=== PATIENT | male | born 1995 | race Caucasian/White ===

== ENCOUNTER 2020-11-23 13:34 | Emergency (ER) | payer MEDICAID ==
[~2020-11-23] VITALS: Ht 167.6 cm; Wt 72.7 kg
[2020-11-23] MEDS ORDERED: RABIES VACCINE (PCEC)/PF 2.5 UNITS/ML SYRINGE IM ONE (14:00)
[2020-11-23] MEDS ORDERED: AMOX TR/POT CLAV 875 MG/125 MG TABLET PO ONE (14:45)
[2020-11-23] MEDS ORDERED: PERTUSS(ACELL),DIPH,TET VAC/PF 0.5 ML SYRINGE IM ONE (14:45)
[2020-11-23 15:00] VITALS: BP 130/72
== END 2020-11-23 15:00 | disposition home or self-care (01) ==
LOC: EMS 13:44
DX: S61.451A Open bite of right hand, initial encounter (principal); W54.0XXA Bitten by dog, initial encounter; Y93.89 Activity, other specified; Y92.89 Other specified places as the place of occurrence of the external cause; Y99.8 Other external cause status
CPT/HCPCS: 90471; 90472; 90675; 90715; 99284

== ENCOUNTER 2020-11-26 09:19 | Emergency (ER) | payer MEDICAID ==
[~2020-11-26] VITALS: Ht 160 cm; Wt 68.2 kg
[2020-11-26] MEDS ORDERED: RABIES VACCINE (PCEC)/PF 2.5 UNITS/ML SYRINGE IM ONE (09:45)
[2020-11-26 10:20] VITALS: BP 128/77
== END 2020-11-26 10:30 | disposition home or self-care (01) ==
LOC: EMS 09:19
DX: S61.451D Open bite of right hand, subsequent encounter (principal); X58.XXXD Exposure to other specified factors, subsequent encounter
CPT/HCPCS: 90471; 90675; 96372; 99281; 99283

== ENCOUNTER 2020-11-30 14:18 | Emergency (ER) | payer MEDICAID ==
[~2020-11-30] VITALS: Ht 157.5 cm; Wt 72.7 kg
[2020-11-30] MEDS ORDERED: RABIES VACCINE (PCEC)/PF 2.5 UNITS/ML SYRINGE IM ONE (15:30)
[2020-11-30 16:00] VITALS: BP 118/69
== END 2020-11-30 16:01 | disposition home or self-care (01) ==
LOC: EMS 14:20
DX: Z23 Encounter for immunization (principal)
CPT/HCPCS: 90471; 90675; 99281

== ENCOUNTER 2020-12-07 11:57 | Emergency (ER) | payer MEDICAID ==
[~2020-12-07] VITALS: Ht 157.5 cm; Wt 72.7 kg
[2020-12-07 12:11] VITALS: BP 135/60
[2020-12-07] MEDS ORDERED: RABIES VACCINE (PCEC)/PF 2.5 UNITS/ML SYRINGE IM. ONE (12:30)
== END 2020-12-07 13:05 | disposition home or self-care (01) ==
LOC: EMS 11:57
DX: Z02.89 Encounter for other administrative examinations (principal)
CPT/HCPCS: 90471; 90675; 99281

== ENCOUNTER 2021-06-21 09:50 | Emergency (ER) | payer MEDICAID ==
[~2021-06-21] VITALS: Ht 154.9 cm; Wt 72.7 kg
[2021-06-21 11:03] VITALS: BP 118/70
== END 2021-06-21 11:41 | disposition home or self-care (01) ==
LOC: EMS 09:53
DX: S61.552A Open bite of left wrist, initial encounter (principal); W54.0XXA Bitten by dog, initial encounter; Y93.89 Activity, other specified; Y92.89 Other specified places as the place of occurrence of the external cause; Y99.8 Other external cause status
CPT/HCPCS: 99281; Z7502

== ENCOUNTER 2023-05-25 16:34 | Emergency (ER) | payer MEDICAID, OTHER ==
[~2023-05-25] VITALS: Ht 180.3 cm; Wt 86.4 kg
[2023-05-25 16:41] VITALS: BP 114/69; PULSE 87; RESP 18; TEMP 98.6
== END 2023-05-25 17:50 | disposition home or self-care (01) ==
LOC: EMS 16:36
DX: S61.552A Open bite of left wrist, initial encounter (principal); W54.0XXA Bitten by dog, initial encounter; Y93.89 Activity, other specified; Y92.098 Other place in other non-institutional residence as the place of occurrence of the external cause; Y99.8 Other external cause status
CPT/HCPCS: 99281; Z7502